=== PATIENT | female | born 1970 | race Caucasian/White ===

== ENCOUNTER 2022-06-03 15:21 | Emergency (ER) | payer OTHER ==
[~2022-06-03] VITALS: Ht 162.6 cm; Wt 87.1 kg
[2022-06-03 15:27] VITALS: BP 143/82
[2022-06-03] MEDS ORDERED: ALUMINUM HYD/MAG/SIMETHICONE 30 ML UDC PO ONE (15:55)
--- NOTE | 2022-06-03 16:00 | NUR ---
PATIENT PRESENTS TO ED WITH DIFFICULTY BREATHING SINCE LAST NIGHT . PT STATES SHE ALSO HAD DIFFICULTY SWALLOWING FOLLOWING AN EPISODE OF [facility] . DENIES N/V/D; SKIN IS PINK/WARM/DRY; AAOX4 WITH EVEN AND STEADY GAIT; LUNGS CLEAR BL; HR EVEN AND REGULAR; PT DENIES ANY FEVER, CP, SOB, OR COUGH AT THIS TIME; PATIENT STATES PAIN OF 0/10 AT THIS TIME; VSS; PATIENT POSITIONED FOR COMFORT; HOB ELEVATED; BEDRAILS UP X2; BED DOWN. ER MD MADE AWARE OF PT STATUS.
[2022-06-03 16:40] LABS: BASOPHILS # (AUTO) 0.1 K/uL (0.00-0.22); BASOPHILS % (AUTO) 1.1 % (0.0-2.0); EOSINOPHILS # (AUTO) 0.2 K/uL (0-0.4); EOSINOPHILS % (AUTO) 2.1 % (0.0-4.0); HEMATOCRIT 38.9 % (36-48); HEMOGLOBIN 13.3 g/dL (12.0-16.0); LYMPHOCYTES # (AUTO) 1.9 K/uL (2.5-16.5); LYMPHOCYTES % (AUTO) 25.7 % (20.5-51.1); MEAN CORPUSCULAR HEMOGLOBIN 29 pg (27-31); MEAN CORPUSCULAR HGB CONC 34 g/dL (33-37); MEAN CORPUSCULAR VOLUME 85.7 fL (80-94); MONOCYTES # (AUTO) 0.5 K/uL (0.8-1.0); MONOCYTES % (AUTO) 6.5 % (1.7-9.3); NEUTROPHILS # (AUTO) 4.8 K/uL (1.8-7.7); NEUTROPHILS % (AUTO) 64.6 % (42.2-75.2); PLATELET COUNT (AUTO) 274 K/uL (140-450); RED BLOOD CELL COUNT(AUTO) 4.54 MIL/uL (4.20-5.40); WHITE BLOOD COUNT (AUTO) 7.4 K/uL (4.8-10.8)
[2022-06-03] MEDS ORDERED: ACETAMINOPHEN 325 MG TAB PO ONE (16:50)
[2022-06-03 16:55] LABS: ALBUMIN 4.1 g/dL (3.4-5.0); ANION GAP 14.1 (8-16); ASPARTATE AMINOTRANSFERASE 13 U/L (15-37); CARBON DIOXIDE 27.7 mmol/L (21-32); CHLORIDE 102 mmol/L (98-107); CREATININE 0.7 mg/dL (0.6-1.3); GFR ARICAN-AMERICAN 113 mL/min (>90); GLUCOSE 111 mg/dL (74-106); POTASSIUM 3.8 mmol/L (3.5-5.1); SODIUM SERUM 140 mmol/L (136-145); TOTAL BILIRUBIN 0.4 mg/dL (0.0-1.0); UREA NITROGEN, BLOOD 16 mg/dL (7-18)
--- NOTE | 2022-06-03 17:45 | NUR ---
PT TO WAIT IN LOBBY FOR 2ND TROP PER DR CUNNINGHAM
[2022-06-03] MEDS ORDERED: SUCR1TAB35 PO (19:47)
[2022-06-03] MEDS ORDERED: FAMO-90 PO (19:47)
[2022-06-03 20:05] VITALS: BP 135/88
--- NOTE | 2022-06-03 20:05 | NUR ---
d/c with VSS. d/c education given. opportunity to ask questions given and answered. rx of sucralfate and pepcid given.
== END 2022-06-03 20:05 | disposition home or self-care (01) ==
LOC: MED 15:21
DX: R07.89 Other chest pain (principal); K21.9 Gastro-esophageal reflux disease without esophagitis; Z79.899 Other long term (current) drug therapy; Z98.890 Other specified postprocedural states
CPT/HCPCS: 36415; 71045; 80053; 84484; 85025; 93005; 99285

== ENCOUNTER 2022-07-24 06:23 | Day surgery (SDC) | payer OTHER ==
[~2022-07-24] VITALS: Ht 162.6 cm; Wt 86.2 kg
[~2022-07-24 06:23] MED LIST: FAMO-90 PO; SUCR1TAB35 PO
[2022-07-24] MEDS ORDERED: fentaNYL citrate 0.05 MG/ML VIAL ONE (07:17)
[2022-07-24] MEDS ORDERED: MIDAZOLAM 2 MG/2 ML VIAL ONE (07:17)
[2022-07-24] MEDS ORDERED: MIDAZOLAM 2 MG/2 ML VIAL IVP ONE (08:05)
== END 2022-07-24 08:50 | disposition home or self-care (01) ==
LOC: MOR 06:23 → MMU 06:23 → MOR 08:50
PROVIDERS: ATTEND Internal Medicine Gastroenterology
DX: R13.10 Dysphagia, unspecified (principal); K21.9 Gastro-esophageal reflux disease without esophagitis; Z20.822 Contact with and (suspected) exposure to COVID-19; Z79.899 Other long term (current) drug therapy
CPT/HCPCS: 43239; 87426; J2250; J3010